=== PATIENT | male | born 1965 | race Caucasian/White ===

== ENCOUNTER 2017-02-02 19:23 | Emergency (ER) | payer MEDICAID ==
[~2017-02-02] VITALS: Ht 175.3 cm; Wt 97.7 kg
[2017-02-03 00:19] VITALS: BP 135/82
== END 2017-02-03 00:22 | disposition home or self-care (01) ==
LOC: EMS 19:24
DX: K64.4 Residual hemorrhoidal skin tags (principal)
CPT/HCPCS: 99283

== ENCOUNTER 2017-10-15 09:17 | Emergency (ER) | payer MEDICAID ==
[~2017-10-15] VITALS: Ht 175.3 cm; Wt 95.5 kg
[2017-10-15 10:56] LABS: BASOPHILS % (AUTO) 0.9 % (0.0-2.0); EOSINOPHILS % (AUTO) 1.5 % (1.0-6.0); HEMATOCRIT 43.1 % (41-53); LYMPHOCYTES # (AUTO) 1.9 K/uL (1.0-4.8); LYMPHOCYTES % (AUTO) 27.5 % (22.0-44.0); MEAN CORPUSCULAR HEMOGLOBIN 29.8 pg (26.0-34.0); MEAN CORPUSCULAR HGB CONC 34.9 G/dL (31.0-37.0); MEAN CORPUSCULAR VOLUME 85 fL (80-100); MONOCYTES # (AUTO) 0.6 K/uL (0.1-1.0); MONOCYTES % (AUTO) 8.1 % (2.0-9.0); NEUTROPHILS # (AUTO) 4.4 K/uL (1.8-7.7); PLATELET COUNT (AUTO) 206 K/uL (150-450); RED BLOOD CELL COUNT(AUTO) 5.05 MIL/uL (4.50-5.90); RED CELL DISTRIBUTION WIDTH 13.8 % (11.5-14.5)
[2017-10-15 11:03] LABS: ANION GAP 5 mmol/L (8-16); CALCIUM, TOTAL 9.2 mg/dL (8.8-10.5); CARBON DIOXIDE 30 mmol/L (22-29); CHLORIDE 102 mmol/L (98-107); GLOMERULAR FILTR. RATE CALC > 60 mL/min (>60); GLUCOSE,RANDOM 89 mg/dL (70-110); POTASSIUM 4.4 mmol/L (3.5-5.1); SODIUM SERUM 137 mmol/L (136-145); UREA NITROGEN, BLOOD 10 mg/dL (7-18)
[2017-10-15 11:09] LABS: ALANINE AMINOTRANSFERASE 35 U/L (12-78); ALBUMIN 3.8 g/dL (3.4-5.0); ALKALINE PHOSPHATASE 91 U/L (46-116); ASPARTATE AMINOTRANSFERASE 19 U/L (15-37); BILIRUBIN,TOTAL 0.5 mg/dL (0.1-1.0); TOTAL PROTEIN, SERUM 7.9 g/dL (6.4-8.2)
[2017-10-15] MEDS ORDERED: KETOROLAC TROMETHAMINE 60 MG/2 ML VIAL IM ONE (13:15)
[2017-10-15] MEDS ORDERED: ALBUTEROL SULFATE HFA 90 MCG/PUFF 8 GM INHALER IH ONE (13:45)
[2017-10-15 14:55] VITALS: BP 141/78
== END 2017-10-15 15:26 | disposition home or self-care (01) ==
LOC: EMS 09:17
DX: M54.6 Pain in thoracic spine (principal); F17.210 Nicotine dependence, cigarettes, uncomplicated
CPT/HCPCS: 36415; 71046; 80053; 84484; 85025; 85379; 93005; 94640; 96372; 99285; J1885; J3535

== ENCOUNTER 2017-10-26 14:36 | Emergency (ER) | payer MEDICAID ==
[~2017-10-26] VITALS: Ht 175.3 cm; Wt 109.1 kg
[2017-10-26] MEDS ORDERED: KETOROLAC TROMETHAMINE 60 MG/2 ML VIAL IM ONE (15:45)
[2017-10-26 15:55] LABS: BASOPHILS % (AUTO) 0.8 % (0.0-2.0); EOSINOPHILS % (AUTO) 1.7 % (1.0-6.0); HEMATOCRIT 42.8 % (41-53); HEMOGLOBIN 14.9 g/dL (13.5-17.5); MEAN CORPUSCULAR HEMOGLOBIN 29.7 pg (26.0-34.0); MEAN CORPUSCULAR HGB CONC 34.8 G/dL (31.0-37.0); MEAN CORPUSCULAR VOLUME 85 fL (80-100); MONOCYTES # (AUTO) 0.7 K/uL (0.1-1.0); MONOCYTES % (AUTO) 16.8 % (2.0-9.0); NEUTROPHILS # (AUTO) 2.4 K/uL (1.8-7.7); NEUTROPHILS % (AUTO) 56.7 % (40.0-70.0); PLATELET COUNT (AUTO) 183 K/uL (150-450); RED BLOOD CELL COUNT(AUTO) 5.02 MIL/uL (4.50-5.90); RED CELL DISTRIBUTION WIDTH 13.8 % (11.5-14.5)
[2017-10-26] MEDS ORDERED: ASPIRIN 325 MG TABLET PO ONE (16:00)
[2017-10-26 16:05] LABS: ANION GAP 9 mmol/L (8-16); CALCIUM, TOTAL 8.7 mg/dL (8.8-10.5); CARBON DIOXIDE 26 mmol/L (22-29); CHLORIDE 104 mmol/L (98-107); CREATININE 0.87 mg/dL (0.60-1.30); GLOMERULAR FILTR. RATE CALC > 60 mL/min (>60); GLUCOSE,RANDOM 103 mg/dL (70-110); POTASSIUM 3.7 mmol/L (3.5-5.1); SODIUM SERUM 139 mmol/L (136-145); UREA NITROGEN, BLOOD 15 mg/dL (7-18)
[2017-10-26 16:22] LABS: B-TYPE NATRIURETIC PEPTIDE 12 pg/mL (0-100)
[2017-10-26 16:32] LABS: ALANINE AMINOTRANSFERASE 53 U/L (12-78); ALBUMIN 3.5 g/dL (3.4-5.0); ALKALINE PHOSPHATASE 93 U/L (46-116); ASPARTATE AMINOTRANSFERASE 34 U/L (15-37); BILIRUBIN,TOTAL 0.3 mg/dL (0.1-1.0); CREATINE KINASE MB 1.3 ng/mL (0-5); CREATINE KINASE, TOTAL 123 U/L (39-308); TOTAL PROTEIN, SERUM 7.6 g/dL (6.4-8.2)
[2017-10-26 17:51] VITALS: BP 141/90
== END 2017-10-26 17:54 | disposition home or self-care (01) ==
LOC: EMS 14:37
DX: R07.89 Other chest pain (principal); J06.9 Acute upper respiratory infection, unspecified; M54.6 Pain in thoracic spine; J02.9 Acute pharyngitis, unspecified; R51 Headache
CPT/HCPCS: 36415; 71046; 80053; 82550; 82553; 83880; 84484; 85025; 93005; 96372; 99285; J1885

== ENCOUNTER 2018-03-30 08:50 | Inpatient (IN) | payer MEDICAID ==
[~2018-03-30] VITALS: Ht 175.3 cm; Wt 100.7 kg
[2018-03-30] MEDS ORDERED: HYPERTENSION PO (09:43)
[2018-03-30] MEDS ORDERED: HIGH CHOLESTEROL PO (09:43)
[2018-03-30 10:24] LABS: BASOPHILS % (AUTO) 0.7 % (0.0-2.0); EOSINOPHILS % (AUTO) 0.6 % (1.0-6.0); HEMATOCRIT 44.8 % (41-53); HEMOGLOBIN 15.1 g/dL (13.5-17.5); LYMPHOCYTES # (AUTO) 1.1 K/uL (1.0-4.8); LYMPHOCYTES % (AUTO) 16.9 % (22.0-44.0); MEAN CORPUSCULAR HEMOGLOBIN 29.5 pg (26.0-34.0); MEAN CORPUSCULAR HGB CONC 33.8 G/dL (31.0-37.0); MEAN CORPUSCULAR VOLUME 87 fL (80-100); MONOCYTES # (AUTO) 0.4 K/uL (0.1-1.0); MONOCYTES % (AUTO) 6.7 % (2.0-9.0); NEUTROPHILS % (AUTO) 75.1 % (40.0-70.0); PLATELET COUNT (AUTO) 189 K/uL (150-450); RED BLOOD CELL COUNT(AUTO) 5.14 MIL/uL (4.50-5.90); RED CELL DISTRIBUTION WIDTH 13.6 % (11.5-14.5)
[2018-03-30] MEDS ORDERED: LORazepam 2 MG TABLET PO PRN (10:30)
[2018-03-30] MEDS ORDERED: ACETAMINOPHEN 325 MG TABLET PO PRN (10:30)
[2018-03-30] MEDS ORDERED: IBUPROFEN 400 MG TABLET PO PRN (10:30)
[2018-03-30] MEDS ORDERED: OLANZapine 5 MG RAPDIS TABLET PO PRN (10:30)
[2018-03-30] MEDS ORDERED: ZOLPIDEM TARTRATE 10 MG TABLET PO PRN (10:30)
[2018-03-30 10:39] LABS: ANION GAP 8 mmol/L (8-16); CALCIUM, TOTAL 8.7 mg/dL (8.8-10.5); CARBON DIOXIDE 26 mmol/L (22-29); CHLORIDE 104 mmol/L (98-107); CREATININE 0.88 mg/dL (0.60-1.30); GLOMERULAR FILTR. RATE CALC > 60 mL/min (>60); GLUCOSE,RANDOM 95 mg/dL (70-110); POTASSIUM 3.3 mmol/L (3.5-5.1); SODIUM SERUM 138 mmol/L (136-145); UREA NITROGEN, BLOOD 12 mg/dL (7-18)
[2018-03-30 10:44] LABS: ALANINE AMINOTRANSFERASE 34 U/L (12-78); ALBUMIN 3.6 g/dL (3.4-5.0); ALKALINE PHOSPHATASE 97 U/L (46-116); ASPARTATE AMINOTRANSFERASE 22 U/L (15-37); BILIRUBIN,TOTAL 1.1 mg/dL (0.1-1.0); TOTAL PROTEIN, SERUM 7.5 g/dL (6.4-8.2)
[2018-03-30] MEDS ORDERED: POTASSIUM CHLORIDE 10% 40 MEQ/30 ML LIQUID UDCUP PO ONE (11:15)
[2018-03-30 12:39] LABS: AMPHET/METH SCREEN,URINE POSITIVE (NEGATIVE); BARBITURATE SCREEN, URINE NEGATIVE (NEGATIVE); BENZODIAZEPINES SCREEN,URINE NEGATIVE (NEGATIVE); CANNABINOID SCREEN,URINE POSITIVE (NEGATIVE); COCAINE SCREEN,URINE NEGATIVE (NEGATIVE); METHADONE SCREEN, URINE NEGATIVE (NEGATIVE); OPIATE SCREEN,URINE NEGATIVE (NEGATIVE)
[2018-03-30 12:41] LABS: PHENCYCLIDINE SCREEN,URINE NEGATIVE (NEGATIVE)
[2018-03-30] MEDS ORDERED: ONDANSETRON HCL 4 MG TABLET PO PRN (17:00)
[2018-03-30] MEDS ORDERED: MAG HYDROX/AL HYDROX/SIMETH ES 30 ML SUSPENSION UDCUP PO PRN (17:00)
[2018-03-30] MEDS ORDERED: NICOTINE 14 MG/24 HOUR PATCH TD PRN (17:00)
[2018-03-30] MEDS ORDERED: DOCUSATE SODIUM 100 MG CAPSULE PO PRN (17:00)
[2018-03-30] MEDS ORDERED: PETROLATUM,WHITE 71 GM JELLY TP PRN (17:00)
[2018-03-30] MEDS ORDERED: LOPERAMIDE HCL 2 MG CAPSULE PO PRN (17:00)
[2018-03-30] MEDS ORDERED: ALBUTEROL SULFATE HFA 90 MCG/PUFF 8 GM INHALER IH PRN (17:00)
[2018-03-30] MEDS ORDERED: MAGNESIUM HYDROXIDE SUSPENSION 30 ML UDCUP PO PRN (17:00)
[2018-03-30] MEDS ORDERED: CloNIDine HCL 0.1 MG TABLET PO PRN (17:00)
[2018-03-30] MEDS ORDERED: GuaiFENesin/D-METHORPHAN [SUGAR-FREE] 200-20MG/10 ML SYRUP UDCUP PO PRN (17:00)
[2018-03-30 17:39] VITALS: BP 128/83
[2018-03-31 00:46] VITALS: BP 124/88
[2018-03-31 08:31] VITALS: BP 118/72
[2018-03-31 09:26] LABS: BASOPHILS % (AUTO) 0.5 % (0.0-2.0); EOSINOPHILS % (AUTO) 1.3 % (1.0-6.0); HEMATOCRIT 46.6 % (41-53); HEMOGLOBIN 15.7 g/dL (13.5-17.5); LYMPHOCYTES # (AUTO) 1.7 K/uL (1.0-4.8); LYMPHOCYTES % (AUTO) 25.8 % (22.0-44.0); MEAN CORPUSCULAR HEMOGLOBIN 29.9 pg (26.0-34.0); MEAN CORPUSCULAR HGB CONC 33.7 G/dL (31.0-37.0); MEAN CORPUSCULAR VOLUME 89 fL (80-100); MONOCYTES # (AUTO) 0.3 K/uL (0.1-1.0); NEUTROPHILS # (AUTO) 4.4 K/uL (1.8-7.7); NEUTROPHILS % (AUTO) 68.4 % (40.0-70.0); PLATELET COUNT (AUTO) 193 K/uL (150-450); RED BLOOD CELL COUNT(AUTO) 5.25 MIL/uL (4.50-5.90); RED CELL DISTRIBUTION WIDTH 13.7 % (11.5-14.5)
[2018-03-31 10:05] LABS: ALANINE AMINOTRANSFERASE 30 U/L (12-78); ALBUMIN 3.3 g/dL (3.4-5.0); ALKALINE PHOSPHATASE 93 U/L (46-116); ANION GAP 6 mmol/L (8-16); ASPARTATE AMINOTRANSFERASE 19 U/L (15-37); BILIRUBIN,TOTAL 1.1 mg/dL (0.1-1.0); CALCIUM, TOTAL 8.8 mg/dL (8.8-10.5); CARBON DIOXIDE 28 mmol/L (22-29); CHLORIDE 106 mmol/L (98-107); CHOL/HDL RATIO 4.2 (4.2-7.3); CHOLESTEROL 181 mg/dL (131-200); CREATININE 0.96 mg/dL (0.60-1.30); GLOMERULAR FILTR. RATE CALC > 60 mL/min (>60); GLUCOSE,RANDOM 129 mg/dL (70-110); HDL CHOLESTEROL 43 mg/dL (40-60); LDL CHOL (CALC.) 117 mg/dL (0-130); POTASSIUM 3.7 mmol/L (3.5-5.1); SODIUM SERUM 140 mmol/L (136-145); THYROID STIMULATING HORMONE 1.53 uIU/mL (0.36-3.74); TOTAL PROTEIN, SERUM 7.2 g/dL (6.4-8.2); TRIGLYCERIDES 104 mg/dL (15-150); UREA NITROGEN, BLOOD 13 mg/dL (7-18)
[2018-03-31 16:00] VITALS: BP 135/76
[2018-03-31] MEDS: MIRTAZAPINE 15 MG TABLET PO SCH (20:34)
[2018-04-01 04:09] VITALS: BP 122/74
[2018-04-01 08:10] VITALS: BP 118/72
[2018-04-01] MEDS ORDERED: ARIPiprazole 10 MG TABLET PO SCH (09:00)
[2018-04-01 16:22] VITALS: BP 134/78
[2018-04-01] MEDS: MIRTAZAPINE 15 MG TABLET PO SCH (20:16)
[2018-04-02 06:52] VITALS: BP 144/84
[2018-04-02 08:06] VITALS: BP 112/67
[2018-04-02] MEDS: ARIPiprazole 15 MG TABLET PO SCH (08:41)
[2018-04-02 16:00] VITALS: BP 138/87
[2018-04-02] MEDS: MIRTAZAPINE 15 MG TABLET PO SCH (20:51)
[2018-04-03 06:36] VITALS: BP 133/87
[2018-04-03 08:05] VITALS: BP 128/76
[2018-04-03] MEDS: ARIPiprazole 15 MG TABLET PO SCH (08:29)
[2018-04-03] MEDS ORDERED: MIRT15 PO (10:02)
[2018-04-03] MEDS ORDERED: ARIP15TA2 PO (10:02)
== END 2018-04-03 13:20 | disposition home or self-care (01) | DRG 750 ==
LOC: EMS 08:53 → B3A 15:05
PROVIDERS: ADMIT Psychiatry & Neurology Psychiatry; ATTEND Psychiatry & Neurology Psychiatry
DX: F25.0 Schizoaffective disorder, bipolar type (principal); K86.1 Other chronic pancreatitis; E78.00 Pure hypercholesterolemia, unspecified; E78.5 Hyperlipidemia, unspecified; E87.6 Hypokalemia; F17.210 Nicotine dependence, cigarettes, uncomplicated; F41.9 Anxiety disorder, unspecified; F19.20 Other psychoactive substance dependence, uncomplicated; I10 Essential (primary) hypertension; Z59.0 Homelessness; Z91.19 Patient's noncompliance with other medical treatment and regimen; Z71.51 Drug abuse counseling and surveillance of drug abuser; Z71.6 Tobacco abuse counseling; Z79.899 Other long term (current) drug therapy
CPT/HCPCS: 83036; 84443; 99285; G0480

== ENCOUNTER 2025-05-13 20:03 | Emergency (ER) | payer MEDICAID, OTHER ==
[~2025-05-13] VITALS: Ht 175.3 cm; Wt 104.0 kg
[~2025-05-13 20:03] MED LIST: ARIP20TA PO; MIRT-89 PO
[2025-05-13 20:45] VITALS: TEMP 98.1
[2025-05-13 23:16] LABS: PLATELET COUNT (AUTO) 200 K/uL (150-450); RED BLOOD CELL COUNT(AUTO) 5.10 MIL/uL (4.50-5.90); RED CELL DISTRIBUTION WIDTH 16.7 % (11.5-14.5); WHITE BLOOD COUNT (AUTO) 7.5 K/uL (4.5-11.0)
[2025-05-13 23:24] LABS: CALCIUM, TOTAL 8.6 mg/dL (8.8-10.5); CREATININE 0.70 mg/dL (0.60-1.30); GLOMERULAR FILTR. RATE CALC > 60 mL/min (>60); GLUCOSE,RANDOM 92 mg/dL (70-110); SODIUM SERUM 143 mmol/L (136-145); UREA NITROGEN, BLOOD 11 mg/dL (7-18)
[2025-05-13 23:34] LABS: TROPONIN I-HIGH SENSITIVITY 11 ng/L (<76)
[2025-05-14] MEDS: CETIRIZINE HCL 10 MG TABLET PO ONE (00:19)
[2025-05-14] MEDS: SIMETHICONE 80 MG CHEWABLE TABLET CHEW ONE (00:20)
[2025-05-14] MEDS: OFLOXACIN 0.3% 5 ML OTIC SOLUTION AS ONE (00:20)
[2025-05-14 01:49] VITALS: BP 129/88; PULSE 68; RESP 18; O2SAT 98
== END 2025-05-14 02:21 ==
LOC: EMS 20:03
DX: R07.89 Other chest pain (principal); H72.92 Unspecified perforation of tympanic membrane, left ear; H91.92 Unspecified hearing loss, left ear; E78.00 Pure hypercholesterolemia, unspecified; F20.9 Schizophrenia, unspecified; F17.210 Nicotine dependence, cigarettes, uncomplicated; I10 Essential (primary) hypertension; Z87.19 Personal history of other diseases of the digestive system; Z98.890 Other specified postprocedural states; Z79.899 Other long term (current) drug therapy
CPT/HCPCS: 71045; 80048; 84484; 85025; 93005; 99285; 36415-L1; 36415-TC